=== PATIENT | female | born 1985 | race Caucasian/White ===

== ENCOUNTER 2016-09-07 04:34 | Emergency (ER) | payer OTHER ==
--- NOTE | 2016-09-07 08:01 | ED CLINICAL REPORT ---
Clinical Report - Physicians/Mid Levels [facility] [address] [place] [address] 09/07/2016 4:36 Patient: JAZMINE BROWN Time Seen: 04:43. Arrived- By private vehicle. Historian- patient. HISTORY OF PRESENT ILLNESS Chief Complaint: PELVIC PAIN. This started several days ago and still present and worsening. It was gradual in onset and has been waxing/waning. The symptoms are described as mild. The patient has had mild, crampy pelvic pain. No flank pain, pain with urination, urinary frequency, urgency of urination or hematuria. She has chronically had irregular periods. Last normal menstrual period- May 2016. 2. Para 0. Abortions 1. No contraception. Sexually active. Does not use control measures. REVIEW OF SYSTEMS No chills, fever, sweats, calf pain or chest pain. No difficulty breathing, pedal edema, palpitations, abdominal pain or constipation. No diarrhea, nausea, vomiting or urinary problems. The patient has had a nonproductive cough. All systems otherwise negative, except as recorded above. SOCIAL HISTORY Current every day heavy tobacco smoker (cigarette)- less than 1 pack per day. History of drug use: marijuana. No alcohol use. FAMILY HISTORY Diabetes in first-degree relative (father); heart disease in first-degree relative (father). ADDITIONAL NOTES The nursing notes have been reviewed. PHYSICAL EXAM Vital Signs: 09/07/2016 04:41 BP: 165/94. HR: 92. RR: 16. O2 saturation: 100%. Temp: 98.1 F. Pain level now: 4/10. Have been reviewed. Appearance: Alert. No acute distress. ENT: Pharynx normal. Neck: Neck supple. CVS: Heart sounds normal. Respiratory: No respiratory distress. Breath sounds normal. Abdomen: Soft. Bowel sounds normal. No organomegaly. No mass. Obese. Back: Normal external inspection. : External inspection normal. Speculum exam normal. Enlarged uterus- above the symphysis. Mild left adnexal tenderness. No tenderness with movement of the cervix. Skin: Skin warm and dry. Normal skin color. Normal skin turgor. Extremities: Extremities nontender. No lower extremity edema. LABS, X-RAYS, AND EKG Pelvic Sonogram: An intrauterine (19 and 6 / 7 week size) is present. An ovarian cyst is present (Corpus luteal). EDC based on ultrasound January 26, 2017 the case was discussed with the coding technician. The study was independently viewed by me. Laboratory Tests: UA-Culture if indicated: (KIMANI: 09/07/2016 04:45) ( [facility] 09/07/2016 05:06) Final results Test Result Flag Units (Reference) URINE COLOR YELLOW URINE APPEARANCE CLEAR URINE GLUCOSE NEGATIVE (NEGATIVE) URINE BILIRUBIN NEGATIVE (NEGATIVE) URINE KETONE NEGATIVE (NEGATIVE) URINE SPECIFIC GRAVITY >= 1.030 (1.010-1.030) URINE PH 5.5 (5.0-8.0) URINE PROTEIN NEGATIVE (NEGATIVE) URINE UROBILINOGEN 0.2 EU/dL (0.2-1.0) URINE NITRITE NEGATIVE (NEGATIVE) URINE BLOOD NEGATIVE (NEGATIVE) URINE LEUK ESTERASE NEGATIVE (NEGATIVE) URINE RBC 1-3 rbc/hpf (0-1) URINE WBC 0-1 wbc/hpf (0-1) URINE EPITHELIAL CELLS 1-3 EPI/hpf (0-5) URINE BACTERIA TRACE (<1+) (NONE SEEN) URINE COMMENT CULT NOT INDICATED CALCIUM OXALATE CRYSTALS: 5-10/HPFURINE CULTURES ARE SET-UP BASED ON THE FOLLOWING CRITERIA:POSITIVE NITRITEPOSITIVE LEUKOCYTE ESTERASEGREATER THAN 10 WHITE BLOOD CELLSMODERATE (2+) OR GREATER BACTERIA Urine: (KIMANI: 09/07/2016 04:45) ( [facility] 09/07/2016 04:56) Final results Test Result Flag Units (Reference) URINE POSITIVE CBC w Diff: (KIMANI: 09/07/2016 05:45) ( [facility] 09/07/2016 05:53) Final results Test Result Flag Units (Reference) WHITE BLOOD COUNT 10.9 K/uL (4.5-11.5) RED BLOOD COUNT 3.91 L M/uL (4.00-5.20) HEMOGLOBIN 11.2 L gm/dL (12.0-16.0) HEMATOCRIT 33.1 L % (36.0-46.0) MEAN CELL VOLUME 85 fL (80-100) MEAN CORPUSCULAR HGB 29 pg (26-34) MEAN CORPUSCULAR HGB CONC 34 g/dL (31-37) RED CELL DISTRIBUTION WIDTH 13.4 % (11.6-14.8) PLATELET COUNT 269 K/uL (150-400) NEUTROPHIL % 65.7 % (50-75) LYMPH % 27.6 % (25-40) MONO % 3.3 % (3-14) EOSINOPHIL % 2.3 % (0-4) BASOPHIL % 1.1 % (0-2) CMP: (KIMANI: 09/07/2016 05:45) ( MsgRcvd 09/07/2016 07:02) Final results Test Result Flag Units (Reference) GLUCOSE 90 mg/dL (70-110) BUN 8 mg/dL (7-18) CREATININE 0.6 mg/dL (0.6-1.3) Estimated GFR >60 mL/min Estimated GFR- >60 mL/min Note: Persistent reduction over 3 months in eGFR<60 mL/min/1.73 m2 defines CKD. Patients with eGFR values>=60 mL/min/1.73 m2 may also have CKD if evidence ofpersistent proteinuria. Additional information may be foundat www.kidney.org. SODIUM 139 mmol/L (136-145) POTASSIUM 3.5 mmol/L (3.5-5.1) CHLORIDE 104 mmol/L (98-107) CARBON DIOXIDE 23 mmol/L (21-32) CALCIUM 8.8 mg/dL (8.5-10.1) TOTAL PROTEIN 7.1 g/dL (6.4-8.2) ALBUMIN 2.8 L g/dL (3.3-5.0) BILIRUBIN, TOTAL 0.2 mg/dL (0.0-1.0) ALKALINE PHOSPHATASE 39 L U/L (46-116) AST (SGOT) 14 L U/L (15-37) ALT (SGPT) 29 U/L (12-78) LIPASE 102 U/L (73-393) AMYLASE 52 U/L (25-115) BETA HCG, QUANTITATIVE 9283 mIU/mL REFERENCE RANGE:Adult Males: <2 mIU/mLNon- Females: <6 mIU/mL Females:Approximate Approximate hCGGestational Age Range (mIU/mL) 0-1 week 0-501-2 weeks 40-3002-3 weeks 100-16603-7 weeks 500-32057-3 months 5,000-200,0002-3 months 10,000-100,0002nd trimester 3,000-50,0003rd trimester 1,000-50,000 Wet Prep: (KIMANI: 09/07/2016 06:05) ( MsgRcvd 09/07/2016 06:21) Final results SPECIMEN DESCRIPTION: CERVIX Test Result Flag Units (Reference) WET MOUNT CLUE CELLS:: FEW * EPITHELIAL CELLS: FEW -- SOURCE?: CERVIX WHITE BLOOD CELLS: FEW TRICHOMONAS:: NONE -- YEAST:: NONE . PROGRESS AND PROCEDURES Course of Care: Patient is stable. Patient/family counseled. Old medical records ordered. Old records unavailable. Disposition: Discharged. Condition: stable. CLINICAL IMPRESSION Second trimester . INSTRUCTIONS Drink plenty of fluids. Do not smoke- benefits of smoking cessation discussed (>3 -10 minutes). Seek medical help to quit smoking. No alcohol. Warnings: Further evaluation is necessary. GENERAL WARNINGS: Return or contact your physician immediately if your condition worsens or changes unexpectedly, if not improving as expected, or if other problems arise. Prescription Medications: vitamins: Take 1 orally every day. Dispense thirty (30). No refill. OTC Medications: Tylenol (available over the counter): take according to label instructions. Understanding of the discharge instructions verbalized by patient. Follow-up with: Elyssa Ledezma DO, intake rn, , [facility], [address] [place] [address], [facility] hospital Follow up tomorrow. Call for the next available appointment. (Electronically signed by Kelvin Herrera MD 09/07/2016 8:21)
--- NOTE | 2016-09-07 08:01 | ED CLINICAL REPORT ---
Clinical Report - Physicians/Mid Levels [facility] [address] [place] [address] 09/07/2016 4:36 Patient: JAZMINE BROWN Time Seen: 04:43. Arrived- By private vehicle. Historian- patient. HISTORY OF PRESENT ILLNESS Chief Complaint: PELVIC PAIN. This started several days ago and still present and worsening. It was gradual in onset and has been waxing/waning. The symptoms are described as mild. The patient has had mild, crampy pelvic pain. No flank pain, pain with urination, urinary frequency, urgency of urination or hematuria. She has chronically had irregular periods. Last normal menstrual period- May 2016. 2. Para 0. Abortions 1. No contraception. Sexually active. Does not use control measures. REVIEW OF SYSTEMS No chills, fever, sweats, calf pain or chest pain. No difficulty breathing, pedal edema, palpitations, abdominal pain or constipation. No diarrhea, nausea, vomiting or urinary problems. The patient has had a nonproductive cough. All systems otherwise negative, except as recorded above. SOCIAL HISTORY Current every day heavy tobacco smoker (cigarette)- less than 1 pack per day. History of drug use: marijuana. No alcohol use. FAMILY HISTORY Diabetes in first-degree relative (father); heart disease in first-degree relative (father). ADDITIONAL NOTES The nursing notes have been reviewed. PHYSICAL EXAM Vital Signs: 09/07/2016 04:41 BP: 165/94. HR: 92. RR: 16. O2 saturation: 100%. Temp: 98.1 F. Pain level now: 4/10. Have been reviewed. Appearance: Alert. No acute distress. ENT: Pharynx normal. Neck: Neck supple. CVS: Heart sounds normal. Respiratory: No respiratory distress. Breath sounds normal. Abdomen: Soft. Bowel sounds normal. No organomegaly. No mass. Obese. Back: Normal external inspection. : External inspection normal. Speculum exam normal. Enlarged uterus- above the symphysis. Mild left adnexal tenderness. No tenderness with movement of the cervix. Skin: Skin warm and dry. Normal skin color. Normal skin turgor. Extremities: Extremities nontender. No lower extremity edema. LABS, X-RAYS, AND EKG Pelvic Sonogram: An intrauterine (19 and 6 / 7 week size) is present. An ovarian cyst is present (Corpus luteal). EDC based on ultrasound January 26, 2017 the case was discussed with the piano technician. The study was independently viewed by me. Laboratory Tests: UA-Culture if indicated: (KIMANI: 09/07/2016 04:45) ( [facility] 09/07/2016 05:06) Final results Test Result Flag Units (Reference) URINE COLOR YELLOW URINE APPEARANCE CLEAR URINE GLUCOSE NEGATIVE (NEGATIVE) URINE BILIRUBIN NEGATIVE (NEGATIVE) URINE KETONE NEGATIVE (NEGATIVE) URINE SPECIFIC GRAVITY >= 1.030 (1.010-1.030) URINE PH 5.5 (5.0-8.0) URINE PROTEIN NEGATIVE (NEGATIVE) URINE UROBILINOGEN 0.2 EU/dL (0.2-1.0) URINE NITRITE NEGATIVE (NEGATIVE) URINE BLOOD NEGATIVE (NEGATIVE) URINE LEUK ESTERASE NEGATIVE (NEGATIVE) URINE RBC 1-3 rbc/hpf (0-1) URINE WBC 0-1 wbc/hpf (0-1) URINE EPITHELIAL CELLS 1-3 EPI/hpf (0-5) URINE BACTERIA TRACE (<1+) (NONE SEEN) URINE COMMENT CULT NOT INDICATED CALCIUM OXALATE CRYSTALS: 5-10/HPFURINE CULTURES ARE SET-UP BASED ON THE FOLLOWING CRITERIA:POSITIVE NITRITEPOSITIVE LEUKOCYTE ESTERASEGREATER THAN 10 WHITE BLOOD CELLSMODERATE (2+) OR GREATER BACTERIA Urine: (KIMANI: 09/07/2016 04:45) ( [facility] 09/07/2016 04:56) Final results Test Result Flag Units (Reference) URINE POSITIVE CBC w Diff: (KIMANI: 09/07/2016 05:45) ( [facility] 09/07/2016 05:53) Final results Test Result Flag Units (Reference) WHITE BLOOD COUNT 10.9 K/uL (4.5-11.5) RED BLOOD COUNT 3.91 L M/uL (4.00-5.20) HEMOGLOBIN 11.2 L gm/dL (12.0-16.0) HEMATOCRIT 33.1 L % (36.0-46.0) MEAN CELL VOLUME 85 fL (80-100) MEAN CORPUSCULAR HGB 29 pg (26-34) MEAN CORPUSCULAR HGB CONC 34 g/dL (31-37) RED CELL DISTRIBUTION WIDTH 13.4 % (11.6-14.8) PLATELET COUNT 269 K/uL (150-400) NEUTROPHIL % 65.7 % (50-75) LYMPH % 27.6 % (25-40) MONO % 3.3 % (3-14) EOSINOPHIL % 2.3 % (0-4) BASOPHIL % 1.1 % (0-2) CMP: (KIMANI: 09/07/2016 05:45) ( MsgRcvd 09/07/2016 07:02) Final results Test Result Flag Units (Reference) GLUCOSE 90 mg/dL (70-110) BUN 8 mg/dL (7-18) CREATININE 0.6 mg/dL (0.6-1.3) Estimated GFR >60 mL/min Estimated GFR- >60 mL/min Note: Persistent reduction over 3 months in eGFR<60 mL/min/1.73 m2 defines CKD. Patients with eGFR values>=60 mL/min/1.73 m2 may also have CKD if evidence ofpersistent proteinuria. Additional information may be foundat www.kidney.org. SODIUM 139 mmol/L (136-145) POTASSIUM 3.5 mmol/L (3.5-5.1) CHLORIDE 104 mmol/L (98-107) CARBON DIOXIDE 23 mmol/L (21-32) CALCIUM 8.8 mg/dL (8.5-10.1) TOTAL PROTEIN 7.1 g/dL (6.4-8.2) ALBUMIN 2.8 L g/dL (3.3-5.0) BILIRUBIN, TOTAL 0.2 mg/dL (0.0-1.0) ALKALINE PHOSPHATASE 39 L U/L (46-116) AST (SGOT) 14 L U/L (15-37) ALT (SGPT) 29 U/L (12-78) LIPASE 102 U/L (73-393) AMYLASE 52 U/L (25-115) BETA HCG, QUANTITATIVE 9283 mIU/mL REFERENCE RANGE:Adult Males: <2 mIU/mLNon- Females: <6 mIU/mL Females:Approximate Approximate hCGGestational Age Range (mIU/mL) 0-1 week 0-501-2 weeks 40-3002-3 weeks 100-80781-7 weeks 500-44684-3 months 5,000-200,0002-3 months 10,000-100,0002nd trimester 3,000-50,0003rd trimester 1,000-50,000 Wet Prep: (KIMANI: 09/07/2016 06:05) ( MsgRcvd 09/07/2016 06:21) Final results SPECIMEN DESCRIPTION: CERVIX Test Result Flag Units (Reference) WET MOUNT CLUE CELLS:: FEW * EPITHELIAL CELLS: FEW -- SOURCE?: CERVIX WHITE BLOOD CELLS: FEW TRICHOMONAS:: NONE -- YEAST:: NONE . PROGRESS AND PROCEDURES Course of Care: Patient is stable. Patient/family counseled. Old medical records ordered. Old records unavailable. Disposition: Discharged. Condition: stable. CLINICAL IMPRESSION Second trimester . INSTRUCTIONS Drink plenty of fluids. Do not smoke- benefits of smoking cessation discussed (>3 -10 minutes). Seek medical help to quit smoking. No alcohol. Warnings: Further evaluation is necessary. GENERAL WARNINGS: Return or contact your physician immediately if your condition worsens or changes unexpectedly, if not improving as expected, or if other problems arise. Prescription Medications: vitamins: Take 1 orally every day. Dispense thirty (30). No refill. OTC Medications: Tylenol (available over the counter): take according to label instructions. Understanding of the discharge instructions verbalized by patient. Follow-up with: Elyssa Ledezma DO, office technology instructor, , [facility], [address] [place] [address], [facility] Follow up tomorrow. Call for the next available appointment. (Electronically signed by Kelvin Herrera MD 09/07/2016 8:21)
--- NOTE | 2016-09-07 08:01 | ED NURSING NOTES ---
Clinical Report - Nurses [facility] [address] [place] [address] 09/07/2016 4:36 Patient: JAZMINE BROWN TRIAGE Triage time 04:41. Acuity: LEVEL 4. Chief Complaint: PELVIC PAIN. Alert. --04:46 Theresa Liao R.N. 04:41 09/07/16. BP: 165/94. HR: 92. RR: 16. O2 saturation: 100% on room air. Temp: 98.1 F (oral). Pain level now: 11/14. --04:46 Theresa Liao R.N. Weight: 99.7 kg stated. Height/Length: 65 inches Per Patient. BMI: 36.6. --04:45 Theresa Liao R.N. Medications None. --04:43 Theresa Liao R.N. Allergies No Known Drug Allergy. --04:43 Theresa Liao R.N. History Arrived by private vehicle. Historian: patient. Primary physician (None). ( pt has taken two home tests, one was + and one -, pt began cramping today.). This started today. Onset. (at about 0100). ( left ear and jaw pain for past 3 weeks). Treatment WELD INSPECTOR: None. PAST MEDICAL HX: Last normal menstrual period unknown. SOCIAL HX: Heavy tobacco smoker (cigarette)- less than 1 pack per day. History of drug use: marijuana. No alcohol use. NUTRITIONAL RISK ASSESSMENT: The nutritional risk assessment revealed no deficiencies. FUNCTIONAL ASSESSMENT: Functional assessment: no impairments noted. --04:46 Theresa Liao R.N. PROBLEMS: Syncope. --04:44 Theresa Liao R.N. ADDITIONAL SURGERIES: Incision and drainage of abscess. --04:44 Theresa Liao R.N. Interventions ID band on patient. To treatment room. --04:46 Theresa Liao R.N. PHYSICAL ASSESSMENT Ambulatory to room. Patient gowned. GENERAL / NEURO / PSYCH: Alert. Oriented X 4. Appears in no acute distress. HEENT: Mucous membranes are pink. RESPIRATORY: Respirations not labored. CVS: Capillary refill less than 2 seconds. SKIN: Skin is warm and dry. --04:46 Theresa Liao R.N. NURSING PROGRESS NOTES Head of bed elevated. Two patient identifiers checked. Call light placed in reach. Side rails up x 1. Bed placed in lowest position. Brakes of bed on. --04:46 Theresa Liao R.N. Patient ready for evaluation- chart flagged. --04:46 Theresa Liao R.N. Patient ID band checked for patient name and birthdate: patient confirmed. Instructions provided to collect clean catch urine and patient verbalized understanding. Clean catch urine collected with return of yellow-colored clear urine; sample sent to lab. Specimen labeled in the presence of the patient. --04:47 Theresa Liao R.N. ( MD ordered an IV. Once in the room, the pt refused the IV. 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 She said that getting an IV will trigger her emotionally. Charge nurse was informed of the pt's decline of the IV. Pt also stated she thought she had some "bad weed" tonight.). --05:22 Satnley Cohen R.N. 05:48 09/07/2016 Site #1 started via IV in the left antecubital space with an 20g angiocath, with aseptic technique and good blood return; one attempt. Blood drawn: rainbow set. Labeled in the presence of the patient and sent to the lab. Saline lock flushed with 10 mL saline. --05:48 Theresa Liao R.N. PELVIC EXAM: Pelvic exam performed by ED physician. Assisted by one nurse. Preparation: pelvic tray; patient placed in lithotomy position. Procedure: speculum and bimanual exam. Specimens collected and sent to lab: GC, chlamydia and wet prep. Status post-procedure: she was stable. Total time of assist / procedure: 15 minutes. --06:07 Theresa Liao R.N. ( Assumed care, report from WALTER Kaplan. US in patient room.). --07:43 Sarah Betts R.N. ( US complete, emotional support given. Pt. assisted to bathroom, no needs at this time. Awaiting DC). --07:59 Sarah Betts R.N. DISPOSITION / DISCHARGE 08:14 09/07/2016 Site #1 removed upon discharge. Catheter intact. Pressure dressing applied. --08:14 Sarah Betts R.N. Departure time: 0815. Condition at departure: stable. Discharge instructions provided and reviewed with the patient. Reviewed warnings (cramping, bleeding return to ED). Reviewed medication(s). Prescription(s) given to the patient. Reviewed referral to an top distribution executive. Patient verbalized understanding. Written instructions provided in [place]. The patient was discharged by the physician. She was discharged home. She left the Emergency Department ambulatory and via private vehicle. Patient driving. --08:15 Sarah Betts R.N. 08:13 09/07/16. BP: 139/79. HR: 83. RR: 16. O2 saturation: 100%. Temp: 98.6 F. --08:15 Sarah Betts R.N. Locked/Released at 09/07/2016 8:16 by Sarah Betts R.N.
--- NOTE | 2016-09-07 08:01 | ED ORDER SUMMARY ---
..... Patient: JAZMINE BROWN OrderSheet [facility] VisitID: [id number] [address] [place] [address] 31y, F Registration Date/Time: 09/07/2016 ORDER SHEET Weight: 99.7 kg (stated) Allergies: No Known Drug Allergy GENERAL ORDERS: POC - Urine hCG (04:44 09/07/2016 Josh GOLDMAN) (Ack 4:52 RCollier R.N.) (4:55 Josh GOLDMAN) (Cancelled: Other4:55 Josh GOLDMAN) UA-Culture if indicated Urgent (04:49 09/07/2016 RCollier R.N. verbal order read back to Josh GOLDMAN) (4:51 AMcQuoid ER Tech1) Urine Urgent (04:49 09/07/2016 RCollier R.N. verbal order read back to Josh GOLDMAN) (4:51 AMcQuoid ER Tech1) Wet Prep (Cervix) (cervix) Urgent (05:09 09/07/2016 Josh GOLDMAN) (Ack 5:13 AMcQuoid ER Tech1) (7:03 RCollier R.N.) GC/Chlamydia (Cervix) (cervix) Urgent (05:09 09/07/2016 Josh GOLDMAN) (Ack 5:13 AMcQuoid ER Tech1) (7:03 RCollier R.N.) CBC w Diff Urgent (05:10 09/07/2016 Josh GOLDMAN) (Ack 5:13 AMcQuoid ER Tech1) (7:03 RCollier R.N.) CMP Urgent (05:10 09/07/2016 Josh GOLDMAN) (Ack 5:13 AMcQuoid ER Tech1) (7:03 RCollier R.N.) Amylase Urgent (05:10 09/07/2016 Josh GOLDMAN) (Ack 5:13 AMcQuoid ER Tech1) (7:03 RCollier R.N.) Lipase Urgent (05:09/07/2016 Josh GOLDMAN) (Ack 5:13 AMcQuoid ER Tech1) (7:03 RCollier R.N.) Serum Quantitative Urgent (05:09/07/2016 Josh GOLDMAN) (Ack 5:13 AMcQuoid ER Tech1) (7:03 Goyo R.N.) US OB 1st Trimester w Transvag (unknown) Urgent (07:03 09/07/2016 Goyo R.N. verbal order read back to Josh GOLDMAN) (Ack 7:05 LMuller) (7:43 Josh GOLDMAN) (Cancelled: Other7:43 Josh GOLDMAN) US OB 2nd Trimester (may 2016) Urgent (07:42 09/07/2016 Josh GOLDMAN) (Ack 7:43 LMuller) MEDICATION ORDERS: IV FLUIDS: IV Saline Lock (05:10 09/07/2016 Josh GOLDMAN) (Ack 5:14 Goyo R.NKaren) ORDER SHEET NOTES: [Electronically signed by Sarah Betts R.N. (08:16 09/07/2016)] [Electronically signed by Kelvin Herrera MD (08:21 09/07/2016)] [Electronically locked/signed by Sarah Betts R.N. (08:16 09/07/2016)]
--- NOTE | 2016-09-07 08:01 | ED ORDER SUMMARY ---
..... Patient: JAZMINE BROWN OrderSheet [facility] VisitID: [id number] [address] [place] [address] 31y, F Registration Date/Time: 09/07/2016 ORDER SHEET Weight: 99.7 kg (stated) Allergies: No Known Drug Allergy GENERAL ORDERS: POC - Urine hCG (04:44 09/07/2016 Josh GOLDMAN) (Ack 4:52 RCollier R.N.) (4:55 Josh GOLDMAN) (Cancelled: Other4:55 Josh GOLDMAN) UA-Culture if indicated Urgent (04:49 09/07/2016 RCollier R.N. verbal order read back to Josh GOLDMAN) (4:51 AMcQuoid ER Tech1) Urine Urgent (04:49 09/07/2016 RCollier R.N. verbal order read back to Josh GOLDMAN) (4:51 AMcQuoid ER Tech1) Wet Prep (Cervix) (cervix) Urgent (05:09 09/07/2016 Josh GOLDMAN) (Ack 5:13 AMcQuoid ER Tech1) (7:03 RCollier R.N.) GC/Chlamydia (Cervix) (cervix) Urgent (05:09 09/07/2016 Josh GOLDMAN) (Ack 5:13 AMcQuoid ER Tech1) (7:03 RCollier R.N.) CBC w Diff Urgent (05:10 09/07/2016 Josh GOLDMAN) (Ack 5:13 AMcQuoid ER Tech1) (7:03 RCollier R.N.) CMP Urgent (05:10 09/07/2016 Josh GOLDMAN) (Ack 5:13 AMcQuoid ER Tech1) (7:03 RCollier R.N.) Amylase Urgent (05:10 09/07/2016 Josh GOLDMAN) (Ack 5:13 AMcQuoid ER Tech1) (7:03 RCollier R.N.) Lipase Urgent (05:09/07/2016 Josh GOLDMAN) (Ack 5:13 AMcQuoid ER Tech1) (7:03 RCollier R.N.) Serum Quantitative Urgent (05:09/07/2016 Josh GOLDMAN) (Ack 5:13 AMcQuoid ER Tech1) (7:03 Goyo R.N.) US OB 1st Trimester w Transvag (unknown) Urgent (07:03 09/07/2016 Goyo R.N. verbal order read back to Josh GOLDMAN) (Ack 7:05 LMuller) (7:43 Josh GOLDMAN) (Cancelled: Other7:43 Josh GOLDMAN) US OB 2nd Trimester (may 2016) Urgent (07:42 09/07/2016 Josh GOLDMAN) (Ack 7:43 LMuller) MEDICATION ORDERS: IV FLUIDS: IV Saline Lock (05:10 09/07/2016 Josh GOLDMAN) (Ack 5:14 Goyo R.NKaren) ORDER SHEET NOTES: [Electronically signed by Sarah Betts R.N. (08:16 09/07/2016)] [Electronically signed by Kelvin Herrera MD (08:21 09/07/2016)] [Electronically locked/signed by Sarah Betts R.N. (08:16 09/07/2016)]
--- NOTE | 2016-09-07 08:01 | ED NURSING NOTES ---
Clinical Report - Nurses [facility] [address] [place] [address] 09/07/2016 4:36 Patient: JAZMINE BROWN TRIAGE Triage time 04:41. Acuity: LEVEL 4. Chief Complaint: PELVIC PAIN. Alert. --04:46 Theresa Liao R.N. 04:41 09/07/16. BP: 165/94. HR: 92. RR: 16. O2 saturation: 100% on room air. Temp: 98.1 F (oral). Pain level now: 11/14. --04:46 Theresa Liao R.N. Weight: 99.7 kg stated. Height/Length: 65 inches Per Patient. BMI: 36.6. --04:45 Theresa Liao R.N. Medications None. --04:43 Theresa Liao R.N. Allergies No Known Drug Allergy. --04:43 Theresa Liao R.N. History Arrived by private vehicle. Historian: patient. Primary physician (None). ( pt has taken two home tests, one was + and one -, pt began cramping today.). This started today. Onset. (at about 0100). ( left ear and jaw pain for past 3 weeks). 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 PAST MEDICAL HX: Last normal menstrual period unknown. SOCIAL HX: Heavy tobacco smoker (cigarette)- less than 1 pack per day. History of drug use: marijuana. No alcohol use. NUTRITIONAL RISK ASSESSMENT: The nutritional risk assessment revealed no deficiencies. FUNCTIONAL ASSESSMENT: Functional assessment: no impairments noted. --04:46 Theresa Liao R.N. PROBLEMS: Syncope. --04:44 Theresa Liao R.N. ADDITIONAL SURGERIES: Incision and drainage of abscess. --04:44 Theresa Liao R.N. Interventions ID band on patient. To treatment room. --04:46 Theresa Liao R.N. PHYSICAL ASSESSMENT Ambulatory to room. Patient gowned. GENERAL / NEURO / PSYCH: Alert. Oriented X 4. Appears in no acute distress. HEENT: Mucous membranes are pink. RESPIRATORY: Respirations not labored. CVS: Capillary refill less than 2 seconds. SKIN: Skin is warm and dry. --04:46 Theresa Liao R.N. NURSING PROGRESS NOTES Head of bed elevated. Two patient identifiers checked. Call light placed in reach. Side rails up x 1. Bed placed in lowest position. Brakes of bed on. --04:46 Theresa Liao R.N. Patient ready for evaluation- chart flagged. --04:46 Theresa Liao R.N. Patient ID band checked for patient name and birthdate: patient confirmed. Instructions provided to collect clean catch urine and patient verbalized understanding. Clean catch urine collected with return of yellow-colored clear urine; sample sent to lab. Specimen labeled in the presence of the patient. --04:47 Theresa Liao R.N. ( MD ordered an IV. Once in the room, the pt refused the IV. 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 She said that getting an IV will trigger her emotionally. Charge nurse was informed of the pt's decline of the IV. Pt also stated she thought she had some "bad weed" tonight.). --05:22 Stanley Cohen R.N. 05:48 09/07/2016 Site #1 started via IV in the left antecubital space with an 20g angiocath, with aseptic technique and good blood return; one attempt. Blood drawn: rainbow set. Labeled in the presence of the patient and sent to the lab. Saline lock flushed with 10 mL saline. --05:48 Theresa Liao R.N. PELVIC EXAM: Pelvic exam performed by ED physician. Assisted by one nurse. Preparation: pelvic tray; patient placed in lithotomy position. Procedure: speculum and bimanual exam. Specimens collected and sent to lab: GC, chlamydia and wet prep. Status post-procedure: she was stable. Total time of assist / procedure: 15 minutes. --06:07 Theresa Liao R.N. ( Assumed care, report from WALTER Kaplan. US in patient room.). --07:43 Sarah Betts R.N. ( US complete, emotional support given. Pt. assisted to bathroom, no needs at this time. Awaiting DC). --07:59 Sarah Betts R.N. DISPOSITION / DISCHARGE 08:14 09/07/2016 Site #1 removed upon discharge. Catheter intact. Pressure dressing applied. --08:14 Sarah Betts R.N. Departure time: 0815. Condition at departure: stable. Discharge instructions provided and reviewed with the patient. Reviewed warnings (cramping, bleeding return to ED). Reviewed medication(s). Prescription(s) given to the patient. Reviewed referral to an digging machine operator. Patient verbalized understanding. Written instructions provided in Samoan. The patient was discharged by the physician. She was discharged home. She left the Emergency Department ambulatory and via private vehicle. Patient driving. --08:15 Sarah Betts R.N. 08:13 09/07/16. BP: 139/79. HR: 83. RR: 16. O2 saturation: 100%. Temp: 98.6 F. --08:15 Sarah Betts R.N. Locked/Released at 09/07/2016 8:16 by Sarah Betts R.N.
--- NOTE | 2016-09-07 08:22 | ED MAR SUMMARY ---
..... Medication Administration Record [facility] [address] [place], [place] [id number] Patient: JAZMINE BROWN Visit ID: [id number] 31y, F Weight: 99.7 kg Height/Length: 65 in BMI: 36.6 ALLERGIES: No Known Drug Allergy
--- NOTE | 2016-09-07 08:22 | ED MAR SUMMARY ---
..... Medication Administration Record [facility] [address] [place], [place] [id number] Patient: JAZMINE BROWN Visit ID: [id number] 31y, F Weight: 99.7 kg Height/Length: 65 in BMI: 36.6 ALLERGIES: No Known Drug Allergy
--- NOTE | 2016-09-07 08:22 | ED DISCHARGE INSTRUCTIONS ---
Patient: JAZMINE BROWN General Instructions [facility] VisitID: [id number] [address] [place] [address] 31y, F Registration Date/Time: 09/07/2016 Second trimester . INSTRUCTIONS Drink plenty of fluids. Do not smoke- benefits of smoking cessation discussed (>3 -10 minutes). Seek medical help to quit smoking. No alcohol. Warnings: Further evaluation is necessary. GENERAL WARNINGS: Return or contact your physician immediately if your condition worsens or changes unexpectedly, if not improving as expected, or if other problems arise. Prescription Medications: vitamins: Take 1 orally every day. Dispense thirty (30). No refill. OTC Medications: Tylenol (available over the counter): take according to label instructions. Understanding of the discharge instructions verbalized by patient. Follow-up with: Elyssa Ledezma DO, radio reporter, , [facility], [address] [place] [address] Follow up tomorrow. Call for the next available appointment. ADDITIONAL INFORMATION Your exam today shows that you are . During , it is normal to develop tender swollen breasts, frequent urination and mild vaginal discharge. During the first three months, nausea is common. Guidelines For A Healthy : To ensure that your baby is born healthy there are certain things that you can do: When you feel tired, you should REST. This is especially true in the later months of . Your body needs more FLUIDS than you may be used to: You should drink 8-10 glasses of juice, milk or water. Eat well-balanced MEALS at regular intervals to supply your body with enough protein. You can expect a total weight gain of about 30 pounds during the . Do not try to diet or lose weight while you are . Because of the extra nutritional needs during , take one VITAMIN daily. Do not take any other MEDICINE during your (prescribed or [id number]) unless your doctor specifically recommends this. Many drugs can have harmful effects on the growing baby. If NAUSEA or VOMITING become a problem, avoid greasy and fried foods. Eat several smaller meals throughout the day rather than three large meals. If you SMOKE, you must stop. The nicotine you breathe in goes right to the baby. Stay away from ALCOHOL, even in moderate amounts. Daily drinking will harm your baby and can cause permanent brain damage. RECREATIONAL DRUGS are harmful, especially cocaine, crack, and heroin. Marijuana should also be avoided. If you were using recreational drugs or prescribed medicine when you found out that you were , talk to your doctor about possible effects on the fetus. Follow Up: Call to arrange for care. This can be provided by your family doctor, an quarter folder ( specialist) or a primary care clinic. Get Prompt Medical Attention if any of the following occur: Vaginal bleeding Moderate or severe abdominal or back pain Excessive vomiting, unable to keep any fluids down for six hours Burning with urination Headache, dizziness or rapid weight gain Your exam today shows that you are . During , it is normal to develop tender swollen breasts, frequent urination and mild vaginal discharge. During the first three months, nausea is common. Guidelines For A Healthy : To ensure that your baby is born healthy there are certain things that you can do: When you feel tired, you should REST. This is especially true in the later months of . Your body needs more FLUIDS than you may be used to: You should drink 8-10 glasses of juice, milk or water. Eat well-balanced MEALS at regular intervals to supply your body with enough protein. You can expect a total weight gain of about 30 pounds during the . Do not try to diet or lose weight while you are . Because of the extra nutritional needs during , take one VITAMIN daily. Do not take any other MEDICINE during your (prescribed or [id number]-[id number]) unless your doctor specifically recommends this. Many drugs can have harmful effects on the growing baby. If NAUSEA or VOMITING become a problem, avoid greasy and fried foods. Eat several smaller meals throughout the day rather than three large meals. If you SMOKE, you must stop. The nicotine you breathe in goes right to the baby. Stay away from ALCOHOL, even in moderate amounts. Daily drinking will harm your baby and can cause permanent brain damage. RECREATIONAL DRUGS are harmful, especially cocaine, crack, and heroin. Marijuana should also be avoided. If you were using recreational drugs or prescribed medicine when you found out that you were , talk to your doctor about possible effects on the fetus. Follow Up: Call to arrange for care. This can be provided by your family doctor, an quarter folder ( specialist) or a primary care clinic. Get Prompt Medical Attention if any of the following occur: Vaginal bleeding Moderate or severe abdominal or back pain Excessive vomiting, unable to keep any fluids down for six hours Burning with urination Headache, dizziness or rapid weight gain How To Quit Smoking Smoking is one of the hardest habits to break. About half of all those who have ever smoked have been able to quit, and most of those (about 70%) who still smoke want to quit. Here are some of the best ways to stop smoking. Keep Trying: It takes most smokers about 8 tries before they are finally able to fully quit. So, the more often you try and fail, the better your chance of quitting the next time! So, don't give up! Go Cold [place]: Most ex-smokers quit cold turkey. Trying to cut back gradually doesn't seem to work as well, perhaps because it continues the smoking habit. Also, it is possible to fool yourself by inhaling more while smoking fewer cigarettes. This results in the same amount of nicotine in your body! Get Support: Support programs can make an important difference, especially for the heavy smoker. These groups offer lectures, methods to change your behavior and peer support. Call the free national Quitline for more information. 509-VQTH-RTB (103-780-0722). Low-cost or free programs are offered by many hospitals, local chapters of the [place] [employer] (093-637-4418) and the [place] [employer] (778-272-5031). Support at home is important too. Non-smokers can help by offering praise and encouragement. If the smoker fails to quit, encourage them to try again! Otdq-Rlc-Enbfdfk Medicines: For those who can't quit on their own, Nicotine Replacement Therapy (NRT) may make quitting much easier. Certain aids such as the nicotine patch, gum and lozenge are available without a prescription. However, it is best to use these under the guidance of your doctor. The skin patch provides a steady supply of nicotine to the body. Nicotine gum and lozenge gives temporary bursts of low levels of nicotine. Both methods take the edge off the craving for cigarettes. WARNING: If you feel symptoms of nicotine overdose, such as nausea, vomiting, dizziness, weakness, or fast heartbeat, stop using these and see your doctor. Prescription Medicines: After evaluating your smoking patterns and prior attempts at quitting, your doctor may offer a prescription medicine such as bupropion (Zyban, Wellbutrin), varenicline (Chantix, Champix), a niocotine inhaler or nasal spray. Each has its unique advantage and side effects which your doctor can review with you. Health Benefits Of Quitting: The benefits of quitting start right away and keep improving the longer you go without smokin minutes: blood pressure and pulse return to normal 8 hours: oxygen levels return to normal 2 days: ability to smell and taste begins to improve as damaged nerves start to regrow 2-3 weeks: circulation and lung function improves 1-9 months: decreased cough, congestion and shortness of breath; less tired 1 year: risk of heart attack decreases by half 5 years: risk of lung cancer decreases by half; risk of stroke becomes the same as a non-smoker For information about how to quit smoking, visit the following links: National Cancer [place] , Clearing the Air, Quit Smoking Today - an online booklet. http://www.smokefree.gov/pubs/clearing_the_air.pdf Smokefree.gov http://smokefree.gov/ QuitNet http://www.quitnet.com/ Acetaminophen Oral tablet What is this medicine? ACETAMINOPHEN (a set a IRVIN laura fen) is a pain reliever. It is used to treat mild pain and fever. How should I use this medicine? Take this medicine by mouth with a glass of water. Follow the directions on the package or prescription label. Take your medicine at regular intervals. Do not take your medicine more often than directed. Talk to your engineering and development director regarding the use of this medicine in children. While this drug may be prescribed for children as young as 6 years of age for selected conditions, precautions do apply. What side effects may I notice from receiving this medicine? Side effects that you should report to your doctor or health health care liaison as soon as possible: allergic reactions like skin rash, itching or hives, swelling of the face, lips, or tongue breathing problems fever or sore throat redness, blistering, peeling or loosening of the skin, including inside the mouth trouble passing urine or change in the amount of urine unusual bleeding or bruising unusually weak or tired yellowing of the eyes or skin Side effects that usually do not require medical attention (report to your doctor or health health care liaison if they continue or are bothersome): headache nausea, stomach upset What may interact with this medicine? alcohol imatinib isoniazid other medicines with acetaminophen What if I miss a dose? If you miss a dose, take it as soon as you can. If it is almost time for your next dose, take only that dose. Do not take double or extra doses. Where should I keep my medicine? Keep out of reach of children. Store at room temperature between 20 and 25 degrees C (68 and 77 degrees F). Protect from moisture and heat. Throw away any unused medicine after the expiration date. What should I tell my health care provider before I take this medicine? They need to know if you have any of these conditions: if you frequently drink alcohol containing drinks liver disease an unusual or allergic reaction to acetaminophen, other medicines, foods, dyes or preservatives or trying to get breast-feeding What should I watch for while using this medicine? Tell your doctor or health health care liaison if the pain lasts more than 10 days (5 days for children), if it gets worse, or if there is a new or different kind of pain. Also, check with your doctor if a fever lasts for more than 3 days. Do not take other medicines that contain acetaminophen with this medicine. Always read labels carefully. If you have questions, ask your doctor or pharmacist. If you take too much acetaminophen get medical help right away. Too much acetaminophen can be very dangerous and cause liver damage. Even if you do not have symptoms, it is important to get help right away. You have been given the following additional information: , New Dx , New Dx Smoking Cessation Acetaminophen Oral tablet (Electronically signed by Kelvin Herrera MD 09/07/2016 8:21)
--- NOTE | 2016-09-07 08:22 | ED DISCHARGE INSTRUCTIONS ---
Patient: JAZMINE BROWN General Instructions [facility] VisitID: [id number] [address] [place] [address] 31y, F Registration Date/Time: 09/07/2016 Second trimester . INSTRUCTIONS Drink plenty of fluids. Do not smoke- benefits of smoking cessation discussed (>3 -10 minutes). Seek medical help to quit smoking. No alcohol. Warnings: Further evaluation is necessary. GENERAL WARNINGS: Return or contact your physician immediately if your condition worsens or changes unexpectedly, if not improving as expected, or if other problems arise. Prescription Medications: vitamins: Take 1 orally every day. Dispense thirty (30). No refill. OTC Medications: Tylenol (available over the counter): take according to label instructions. Understanding of the discharge instructions verbalized by patient. Follow-up with: Elyssa Ledezma DO, director of exhibits, , [facility], [address] [place] [address] Follow up tomorrow. Call for the next available appointment. ADDITIONAL INFORMATION Your exam today shows that you are . During , it is normal to develop tender swollen breasts, frequent urination and mild vaginal discharge. During the first three months, nausea is common. Guidelines For A Healthy : To ensure that your baby is born healthy there are certain things that you can do: When you feel tired, you should REST. This is especially true in the later months of . Your body needs more FLUIDS than you may be used to: You should drink 8-10 glasses of juice, milk or water. Eat well-balanced MEALS at regular intervals to supply your body with enough protein. You can expect a total weight gain of about 30 pounds during the . Do not try to diet or lose weight while you are . Because of the extra nutritional needs during , take one VITAMIN daily. Do not take any other MEDICINE during your (prescribed or [id number]) unless your doctor specifically recommends this. Many drugs can have harmful effects on the growing baby. If NAUSEA or VOMITING become a problem, avoid greasy and fried foods. Eat several smaller meals throughout the day rather than three large meals. If you SMOKE, you must stop. The nicotine you breathe in goes right to the baby. Stay away from ALCOHOL, even in moderate amounts. Daily drinking will harm your baby and can cause permanent brain damage. RECREATIONAL DRUGS are harmful, especially cocaine, crack, and heroin. Marijuana should also be avoided. If you were using recreational drugs or prescribed medicine when you found out that you were , talk to your doctor about possible effects on the fetus. Follow Up: Call to arrange for care. This can be provided by your family doctor, an credit collection specialist ( specialist) or a primary care clinic. Get Prompt Medical Attention if any of the following occur: Vaginal bleeding Moderate or severe abdominal or back pain Excessive vomiting, unable to keep any fluids down for six hours Burning with urination Headache, dizziness or rapid weight gain Your exam today shows that you are . During , it is normal to develop tender swollen breasts, frequent urination and mild vaginal discharge. During the first three months, nausea is common. Guidelines For A Healthy : To ensure that your baby is born healthy there are certain things that you can do: When you feel tired, you should REST. This is especially true in the later months of . Your body needs more FLUIDS than you may be used to: You should drink 8-10 glasses of juice, milk or water. Eat well-balanced MEALS at regular intervals to supply your body with enough protein. You can expect a total weight gain of about 30 pounds during the . Do not try to diet or lose weight while you are . Because of the extra nutritional needs during , take one VITAMIN daily. Do not take any other MEDICINE during your (prescribed or [id number]) unless your doctor specifically recommends this. Many drugs can have harmful effects on the growing baby. If NAUSEA or VOMITING become a problem, avoid greasy and fried foods. Eat several smaller meals throughout the day rather than three large meals. If you SMOKE, you must stop. The nicotine you breathe in goes right to the baby. Stay away from ALCOHOL, even in moderate amounts. Daily drinking will harm your baby and can cause permanent brain damage. RECREATIONAL DRUGS are harmful, especially cocaine, crack, and heroin. Marijuana should also be avoided. If you were using recreational drugs or prescribed medicine when you found out that you were , talk to your doctor about possible effects on the fetus. Follow Up: Call to arrange for care. This can be provided by your family doctor, an credit collection specialist ( specialist) or a primary care clinic. Get Prompt Medical Attention if any of the following occur: Vaginal bleeding Moderate or severe abdominal or back pain Excessive vomiting, unable to keep any fluids down for six hours Burning with urination Headache, dizziness or rapid weight gain How To Quit Smoking Smoking is one of the hardest habits to break. About half of all those who have ever smoked have been able to quit, and most of those (about 70%) who still smoke want to quit. Here are some of the best ways to stop smoking. Keep Trying: It takes most smokers about 8 tries before they are finally able to fully quit. So, the more often you try and fail, the better your chance of quitting the next time! So, don't give up! Go Cold [place]: Most ex-smokers quit cold turkey. Trying to cut back gradually doesn't seem to work as well, perhaps because it continues the smoking habit. Also, it is possible to fool yourself by inhaling more while smoking fewer cigarettes. This results in the same amount of nicotine in your body! Get Support: Support programs can make an important difference, especially for the heavy smoker. These groups offer lectures, methods to change your behavior and peer support. Call the free national Quitline for more information. 495-QXAP-JUO (486-340-5679). Low-cost or free programs are offered by many hospitals, local chapters of the [place] [employer] (175-168-7824) and the [place] [employer] (251-669-4876). Support at home is important too. Non-smokers can help by offering praise and encouragement. If the smoker fails to quit, encourage them to try again! Cxaz-Bcc-Qzaxpds Medicines: For those who can't quit on their own, Nicotine Replacement Therapy (NRT) may make quitting much easier. Certain aids such as the nicotine patch, gum and lozenge are available without a prescription. However, it is best to use these under the guidance of your doctor. The skin patch provides a steady supply of nicotine to the body. Nicotine gum and lozenge gives temporary bursts of low levels of nicotine. Both methods take the edge off the craving for cigarettes. WARNING: If you feel symptoms of nicotine overdose, such as nausea, vomiting, dizziness, weakness, or fast heartbeat, stop using these and see your doctor. Prescription Medicines: After evaluating your smoking patterns and prior attempts at quitting, your doctor may offer a prescription medicine such as bupropion (Zyban, Wellbutrin), varenicline (Chantix, Champix), a niocotine inhaler or nasal spray. Each has its unique advantage and side effects which your doctor can review with you. Health Benefits Of Quitting: The benefits of quitting start right away and keep improving the longer you go without smokin minutes: blood pressure and pulse return to normal 8 hours: oxygen levels return to normal 2 days: ability to smell and taste begins to improve as damaged nerves start to regrow 2-3 weeks: circulation and lung function improves 1-9 months: decreased cough, congestion and shortness of breath; less tired 1 year: risk of heart attack decreases by half 5 years: risk of lung cancer decreases by half; risk of stroke becomes the same as a non-smoker For information about how to quit smoking, visit the following links: [employer] , Clearing the Air, Quit Smoking Today - an online booklet. http://www.smokefree.gov/pubs/clearing_the_air.pdf Smokefree.gov http://smokefree.gov/ QuitNet http://www.quitnet.com/ Acetaminophen Oral tablet What is this medicine? ACETAMINOPHEN (a set a IRVIN laura fen) is a pain reliever. It is used to treat mild pain and fever. How should I use this medicine? Take this medicine by mouth with a glass of water. Follow the directions on the package or prescription label. Take your medicine at regular intervals. Do not take your medicine more often than directed. Talk to your lan specialist regarding the use of this medicine in children. While this drug may be prescribed for children as young as 6 years of age for selected conditions, precautions do apply. What side effects may I notice from receiving this medicine? Side effects that you should report to your doctor or health care associate as soon as possible: allergic reactions like skin rash, itching or hives, swelling of the face, lips, or tongue breathing problems fever or sore throat redness, blistering, peeling or loosening of the skin, including inside the mouth trouble passing urine or change in the amount of urine unusual bleeding or bruising unusually weak or tired yellowing of the eyes or skin Side effects that usually do not require medical attention (report to your doctor or health care associate if they continue or are bothersome): headache nausea, stomach upset What may interact with this medicine? alcohol imatinib isoniazid other medicines with acetaminophen What if I miss a dose? If you miss a dose, take it as soon as you can. If it is almost time for your next dose, take only that dose. Do not take double or extra doses. Where should I keep my medicine? Keep out of reach of children. Store at room temperature between 20 and 25 degrees C (68 and 77 degrees F). Protect from moisture and heat. Throw away any unused medicine after the expiration date. What should I tell my health care provider before I take this medicine? They need to know if you have any of these conditions: if you frequently drink alcohol containing drinks liver disease an unusual or allergic reaction to acetaminophen, other medicines, foods, dyes or preservatives or trying to get breast-feeding What should I watch for while using this medicine? Tell your doctor or health care associate if the pain lasts more than 10 days (5 days for children), if it gets worse, or if there is a new or different kind of pain. Also, check with your doctor if a fever lasts for more than 3 days. Do not take other medicines that contain acetaminophen with this medicine. Always read labels carefully. If you have questions, ask your doctor or pharmacist. If you take too much acetaminophen get medical help right away. Too much acetaminophen can be very dangerous and cause liver damage. Even if you do not have symptoms, it is important to get help right away. You have been given the following additional information: , New Dx , New Dx Smoking Cessation Acetaminophen Oral tablet (Electronically signed by Kelvin Herrera MD 09/07/2016 8:21)
--- NOTE | 2016-09-07 08:22 | ED MED RECONCILIATION SUMMARY ---
Patient: JAZMINE BROWN Medication Reconciliation Report [facility] VisitID: [id number] [address] [place] [address] 31y, F Registration Date/Time: 09/07/2016 Weight: 99.7 kg Height/Length: 65 in. BMI: 36.6 ALLERGIES: No Known Drug Allergy The patient's Home Medications are listed below: NONE. The source(s) of the original Home Medication information: Not obtained. The following Medications were given to the patient in the Emergency Department: None. The following Medications were prescribed to the patient: Tylenol (available over the counter): take according to label instructions. -- Kelvin Herrera MD vitamins: Take 1 orally every day. Dispense thirty (30). No refill. -- Kelvin Herrera MD
--- NOTE | 2016-09-07 08:22 | ED MED RECONCILIATION SUMMARY ---
Patient: JAZMINE BROWN Medication Reconciliation Report [facility] VisitID: [id number] [address] [place] [address] 31y, F Registration Date/Time: 09/07/2016 Weight: 99.7 kg Height/Length: 65 in. BMI: 36.6 ALLERGIES: No Known Drug Allergy The patient's Home Medications are listed below: NONE. The source(s) of the original Home Medication information: Not obtained. The following Medications were given to the patient in the Emergency Department: None. The following Medications were prescribed to the patient: Tylenol (available over the counter): take according to label instructions. -- Kelvin Herrera MD vitamins: Take 1 orally every day. Dispense thirty (30). No refill. -- Kelvin Herrera MD
--- NOTE | 2016-09-07 08:23 | DIAGNOSTIC IMAGING REPORT ---
PROCEDURE: US 2ND TRIMESTER INDICATION: PAIN, initial encounter TECHNIQUE: Pisano scale, color, and spectral Doppler images of the second trimester gravid uterus were obtained. COMPARISON: None. FINDINGS: Single intrauterine with vertex presentation, posterior fundal placenta without previa or abruptio. Heart rate 150 bpm. Amniotic fluid is unremarkable. Normal closed cervix measures 3.5 cm. Kidneys and bladder grossly normal. Left ovarian corpus luteum cyst. BPD 4.7 cm, 20 weeks 1 day; head circumference 17.1 cm, 19 weeks 5 days; abdominal circumference 14.1 cm, 19 weeks 3 days; femur length 3.3 cm, 20 weeks 2 days. Composite age 19-week 6 days. RANJIT 01/26/2017. IMPRESSION: 1. Single live intrauterine , vertex, 19-week 6 days 2. RANJIT 01/26/2017
== END 2016-09-07 08:15 | disposition home or self-care (01) ==
LOC: ED SRH 04:34
DX: O26.892 Other specified pregnancy related conditions, second trimester (principal); R10.2 Pelvic and perineal pain; F17.210 Nicotine dependence, cigarettes, uncomplicated
CPT/HCPCS: 90004; 90100; 90195; 90197; 91227; 91228; 92235; 92530; 93070; 95059